=== PATIENT | female | born 1990 ===

== ENCOUNTER 2023-03-29 23:41 | Emergency (ER) | payer OTHER ==
[~2023-03-29] VITALS: Ht 167.6 cm; Wt 80.0 kg
[2023-03-29 23:57] LABS: PCO2 Arterial 43.9 mmHg (35-45); PO2 Arterial 130 mmHg (80-100); pH Blood Arterial 7.31 (7.35-7.45)
[2023-03-30 00:02] LABS: BASOPHILS PERCENT AUTO 1 % (0-2); EOSINOPHILS ABSOLUTE AUTO 0.12 K/mm3 (0.00-0.68); EOSINOPHILS PERCENT AUTO 1 % (0-6); Hemoglobin 13.6 g/dL (11.5-16.0); IMMATURE GRAN ABSOLUTE AUTO 0.01 K/mm3 (0.00-0.10); IMMATURE GRAN PERCENT AUTO 0 % (0-1); LYMPHOCYTES ABSOLUTE AUTO 4.45 K/mm3 (0.84-5.20); LYMPHOCYTES PERCENT AUTO 45 % (21-46); MONOCYTES ABSOLUTE AUTO 0.45 K/mm3 (0.16-1.47); MONOCYTES PERCENT AUTO 5 % (4-13); Mean Corpuscular HGB 32.1 pg (26.0-34.0); Mean Corpuscular HGB Conc 34.9 g/dL (31.5-36.5); Mean Corpuscular Volume 92 fL (80-100); Mean Platelet Volume 9.9 fL (9.1-12.4); NEUTROPHILS ABSOLUTE AUTO 4.68 K/mm3 (1.96-9.15); NEUTROPHILS PERCENT AUTO 48 % (41-73); Platelet Count 283 K/mm3 (150-400); RDW Coefficient Variation 12.5 % (11.7-14.2); Red Blood Cell Count 4.24 M/mm3 (3.80-5.20); White Blood Cell Count 9.81 K/mm3 (4.00-11.30)
[2023-03-30 00:17] LABS: Alanine Aminotransfer (ALT/SGP 29 U/L (12-78); Albumin/Globulin Ratio 1.1 (0.8-1.8); Alk Phos 67 U/L (50-136); Anion Gap 12 mmol/L (6-16); Aspartate Aminotrans (AST/SGOT 27 U/L (12-37); Beta HCG, Quantitative, Serum <1 mIU/mL (0-3); Bilirubin, Total 0.4 mg/dL (0.1-1.0); Blood Urea Nitrogen 14 mg/dL (8-24); CO2, Blood 22 mmol/L (21-32); Calcium, Blood 7.9 mg/dL (8.5-10.1); Chloride, Blood 111 mmol/L (98-108); Creatinine, Blood 0.67 mg/dL (0.40-1.00); Ethanol (Alcohol), Blood, Med 296 mg/dL; Globulin, Blood 3.7 g/dL (2.2-4.0); Glomerular Filtration Rate 68 (60-); Glucose, Blood 104 mg/dL (70-99); International Normalized Ratio 0.91; Potassium, Blood 3.4 mmol/L (3.5-5.5); Prothrombin Time Results 9.6 Sec (9.7-11.5); Sodium, Blood 145 mmol/L (136-145); Total Protein, Blood 7.7 g/dL (6.4-8.2)
[2023-03-30 00:58] VITALS: BP 160/118
[2023-03-30 01:01] LABS: Source, Urine Straight Cath
[2023-03-30 01:12] LABS: Bilirubin, Urine Neg (Neg); Blood, Urine 2+ (Neg); Glucose Qualitative, Urine Neg (Neg); Ketones, Urine 1+ (Neg); Leukocyte Esterase, Urine Neg (Neg); Nitrite, Urine Neg (Neg); Protein, Urine 2+ (Neg); Specific Gravity, Urine 1.015 (1.003-1.022); Urobilinogen, Urine NORM (Normal)
[2023-03-30 01:13] LABS: Appearance, Urine Clear (Clear); Color, Urine Pale Yellow (P-Yellow)
[2023-03-30 01:21] LABS: Bacteria Not Seen /hpf; Red Blood Cells, Urine 0-2 /hpf (0-2); Squamous Epithelial Cells Rare /hpf (Few); White Blood Cells, Urine Not Seen /hpf (0-5)
[2023-03-30 01:23] LABS: U Amphetamine Screen Not Detected; U Barbituate Screen Not Detected; U Benzodiazapine Screen Not Detected; U Buprenorphine Screen Not Detected; U Cannabinoids Screen DETECTED; U Cocaine Screen Not Detected; U Methadone Screen Not Detected; U Methamphetamine Screen Not Detected; U Opiates Screen Not Detected; U Oxycodone Screen Not Detected; U Phencyclidine Screen Not Detected; U Propoxyphene Screen Not Detected
== END 2023-03-30 01:45 | disposition short-term general hospital (02) ==
LOC: ER 23:41 → EDBD 23:41 → ER 03-30 01:45
PROVIDERS: Student in an Organized Health Care Education/Training Program
DX: S51.812A Laceration without foreign body of left forearm, initial encounter (principal); S61.402A Unspecified open wound of left hand, initial encounter; J96.00 Acute respiratory failure, unspecified whether with hypoxia or hypercapnia; E87.20 Acidosis, unspecified; Q79.60 Ehlers-Danlos syndrome, unspecified; F10.129 Alcohol abuse with intoxication, unspecified; Y90.8 Blood alcohol level of 240 mg/100 ml or more; V49.9XXA Car occupant (driver) (passenger) injured in unspecified traffic accident, initial encounter
CPT/HCPCS: 31500; 36600; 51702; 70450; 71045; 71260; 72125; 72170; 74177; 80053; 81001; 82803; 83605; 83690; 84702; 85025; 85610; 86850; 86900; 86901; 90714; 94002; G0480; J0690; J2704; J7120; Q9967